=== PATIENT | female | born 1960 | race Two or more races ===

== ENCOUNTER 2018-06-29 11:04 | Outpatient (CLI) | payer OTHER | END 2018-06-29 11:11 | disposition home or self-care (01) | LOC: RAD 11:04 | DX: Z01.89 Encounter for other specified special examinations (principal) ==

== ENCOUNTER 2019-07-12 11:32 | Outpatient (CLI) | payer OTHER | END 2019-07-12 13:28 | disposition home or self-care (01) | LOC: SONOGRAMA 11:32 | DX: N85.00 Endometrial hyperplasia, unspecified (principal) ==